=== PATIENT | male | born 1965 | race Caucasian/White ===

== ENCOUNTER 2017-06-29 08:55 | Outpatient (CLI) | payer BC | END 2017-06-29 08:56 | disposition home or self-care (01) | LOC: BICRAD 08:55 | PROVIDERS: ATTEND Urology | DX: C64.1 Malignant neoplasm of right kidney, except renal pelvis (principal); C64.2 Malignant neoplasm of left kidney, except renal pelvis | CPT/HCPCS: 71046 ==

== ENCOUNTER 2018-10-03 08:07 | Outpatient (CLI) | payer OTHER ==
[2018-10-03 08:41] LABS: #Eosinphils 0.2 thou/uL (0.0-0.7); #Monocytes 0.6 thou/uL (0.11-0.59); #Neutrophils 3.1 thou/uL (1.40-6.50); %Basophils 0.8 % (0.0-1.0); %Eosinophils 3.4 % (0.0-10.0); %Lymphocytes 33.7 % (21.0-51.0); %Monocytes 10.6 % (0.0-10.0); %Neutrophils 51.4 % (42.0-75.0); Mean Corpuscular HGB CONC 34.3 g/dL (32.0-36.0); Mean Corpuscular Hemoglobin 31.3 pg (27.0-31.0); Mean Corpuscular Volume 91.1 fL (78.0-98.0); Mean Platelet Volume 6.7 fL (7.4-10.4); Platelet Count 148 thou/uL (130-400); RBC Distribution Width 11.7 % (11.5-14.5); Red Blood Cell (RBC) Count 5.11 mill/uL (4.70-6.10); White Blood Cell (WBC) Count 5.9 thou/uL (4.8-10.8)
[2018-10-03 08:54] LABS: Bilirubin Negative (Negative); Blood, Urine Negative (Negative); Clarity CLEAR (Clear); Glucose, Urine (Dipstick) Negative (Negative); Leukocyte Negative (Negative); Nitrite Negative (Negative); Protein, Urine (Dipstick) Negative (Neg-Trace); Specific Gravity, Urine 1.005 (1.002-1.036); Urobilinogen 0.2 mg/dL (0.2-1.0)
[2018-10-03 09:07] LABS: ALT (SGPT) 36 U/L (8-55); AST (SGOT) 23 U/L (5-34); Albumin 4.5 g/dL (3.5-5.0); Alkaline Phosphatase 65 U/L (40-150); Anion Gap 13 mmol/L (10-20); BUN (Urea Nitrogen) 21 mg/dL (8.4-25.7); BUN/Creatinine Ratio 13.64; Bilirubin, Total 0.7 mg/dL (0.2-1.2); Calc. Creatinine Clearance 0 mL/min (70-130); Calcium 9.2 mg/dL (7.8-10.44); Carbon Dioxide 24 mmol/L (22-29); Cardiac Risk 3.5 (Less than 4.5); Chloride 107 mmol/L (98-107); Cholesterol 160 mg/dl (< 200 Desired); Estimated GFR-MDRD 47; Globulin 2.3 g/dL (2.4-3.5); Glucose 104 mg/dL (70-105); HDL Cholesterol 46 mg/dL (>60 Neg Risk); LDL Cholesterol, Calculated 93 mg/dL; Potassium 4.6 mmol/L (3.5-5.1); Protein, Total 6.8 g/dL (6.0-8.3); Sodium 139 mmol/L (136-145); Triglycerides 103 mg/dL (Less than 150); Uric Acid 6.9 mg/dL (3.5-7.2)
[2018-10-03 09:24] LABS: Creatinine, Urine 38.33 mg/dL (63-166); Protein, Urine Random Quant Less than 10 mg/dL (1-14)
--- NOTE | 2018-10-03 09:43 | MRI ---
MRI OF THE ABDOMEN WITHOUT CONTRAST: Date: 10/03/18 COMPARISON: None. HISTORY: Malignant neoplasm of the right kidney, status post nephrectomy. Malignant neoplasm of the left kidne y, status post partial nephrectomy. COMPARISON: 12/08/15. TECHNIQUE: Multiplanar, multisequence MR images were obtained of the abdomen without contrast. FINDINGS: The right kidney has been removed. The right adrenal gland is not seen and may have also been removed . There is scarring along the mid portion of the left kidney, likely from prior partial nephrectomy. No suspicious renal mass is appreciated, although evaluation is limited without contrast. The liver, gallbladder, left adrenal gland, spleen, and pancreas are unremarkable. No abdominal adenopathy is seen. No marrow signal abnormality is present. IMPRESSION: Postsurgical changes of right nephrectomy and left partial nephrectomy without evidence of recurrent or metastatic disease. POS: [facility]
--- NOTE | 2018-10-03 10:47 | RAD ---
PA AND LATERAL VIEWS OF CHEST: Date: 10/03/18 HISTORY: Neoplasm of left and right kidneys, chronic renal disease. Follow-up kidney cancer. COMPARISON: 02/22/18. FINDINGS: The heart size is normal. There is continued elevation of the right hemidiaphragm. No focal areas of consolidation, pneumothorax, mass, or pleural effusions are seen. There are degenerative changes in t he spine. IMPRESSION: Stable exam. No acute process. POS: OFF
== END 2018-10-03 08:08 | disposition home or self-care (01) ==
LOC: MRI 08:07
PROVIDERS: ATTEND Urology
DX: Z12.5 Encounter for screening for malignant neoplasm of prostate (principal); C64.1 Malignant neoplasm of right kidney, except renal pelvis; C64.2 Malignant neoplasm of left kidney, except renal pelvis; N18.9 Chronic kidney disease, unspecified; Z98.890 Other specified postprocedural states
CPT/HCPCS: 36415; 71046; 74181; 80053; 80061; 80069; 81003; 82570; 84156; 84550; 85025; G0103

== ENCOUNTER 2018-11-15 10:23 | Outpatient (CLI) | payer OTHER ==
--- NOTE | 2018-11-15 12:00 | RAD ---
LEFT WRIST: Three views 11/15/18 HISTORY: Wrist pain. Carpals are normally aligned. There are moderate degenerative changes of the first carpometacarpal kelle int with joint narrowing and hypertrophic spurring. No fracture. IMPRESSION: Moderate DJD at the first carpometacarpal. POS: [facility]
--- NOTE | 2018-11-15 12:14 | RAD ---
RIGHT WRIST RADIOGRAPHS 3 VIEWS: Date: 11/15/18 PROVIDED CLINICAL HISTORY: Right wrist pain. FINDINGS: There is no evidence for fracture or other acute osseous abnormality. Prominent first CMC degenerativ e changes are seen. Alignment appears anatomic. Joint spaces appear otherwise preserved. Soft tissues appear radiographically unremarkable. IMPRESSION: First CMC degenerative change. POS: OFF
== END 2018-11-15 10:24 | disposition home or self-care (01) ==
LOC: BICRAD 10:23
PROVIDERS: ATTEND Specialist
DX: M25.531 Pain in right wrist (principal); M25.532 Pain in left wrist; M18.0 Bilateral primary osteoarthritis of first carpometacarpal joints

== ENCOUNTER 2019-05-06 09:48 | Outpatient (CLI) | payer OTHER ==
--- NOTE | 2019-05-06 10:28 | ULT ---
ULTRASOUND RETROPERITONEUM COMPLETE: (RENAL) DATE: 05/06/2019 HISTORY: 54-year-old male with malignant neoplasm of right kidney except renal pelvis. COMPARISON: 02/22/2018 FINDINGS: Right kidney: Surgically absent. Left kidney: 12.5 x 5.5 x 5.5 cm. Broad midline midpole indentation. No moderate sized or large solid or cystic left renal lesion.. No left hydronephrosis. Urinary bladder volume 160 mL. Bladder wall thickness at upper limits of normal, nonspecific. No major interval change. IMPRESSION: 1) status post right nephrectomy. 2) left renal midpole scar. 3) compensatory hypertrophy of left kidney. 4) no other left renal findings.
--- NOTE | 2019-05-06 10:43 | RAD ---
PA AND LATERAL VIEWS CHEST: Date: 05/06/19 HISTORY: Right kidney cancer. FINDINGS: Comparison made with exam of 10/03/18. The heart size is normal. There is continued elevation of the right hemidiaphragm. No focal areas of consolidation, pneumothorax, mass, or pleural effusions seen. There are degenerative changes in the s pine. IMPRESSION: Stable exam. No acute process. POS: OFF
== END 2019-05-06 09:49 | disposition home or self-care (01) ==
LOC: BICULT 09:48
PROVIDERS: ATTEND Urology
DX: C64.1 Malignant neoplasm of right kidney, except renal pelvis (principal); C64.2 Malignant neoplasm of left kidney, except renal pelvis; N28.81 Hypertrophy of kidney; N28.89 Other specified disorders of kidney and ureter; Z90.5 Acquired absence of kidney
CPT/HCPCS: 71046; 76770

== ENCOUNTER 2019-11-07 07:03 | Outpatient (CLI) | payer BC ==
--- NOTE | 2019-11-07 08:17 | ULT ---
Exam: Bilateral renal ultrasound HISTORY: Right kidney cancer COMPARISON: 05/06/2019 FINDINGS: Right kidney: Surgically absent Left kidney: Normal cortical echotexture. Stable scar in the midpole the left kidney. No hydronephros is. There is compensatory left kidney hypertrophy. Left kidney measurements 5.3 x 12.5 x 6.0 cm. Urinary bladder: Normal mucosa. IMPRESSION: 1. Status post right nephrectomy 2. Stable scar in the mid pole left kidney 3. No hydronephrosis. Compensatory hypertrophy of the left kidney.
--- NOTE | 2019-11-07 08:37 | RAD ---
PA AND LATERAL VIEWS CHEST: Date: 11/07/2019 INDICATION: Malignant neoplasm of right and left kidney. COMPARISON: 05/06/2019. FINDINGS: Lung pittman are clear. Heart and mediastinum appear normal. Vasculature normal. Osseous structures un remarkable. No interval change. IMPRESSION: Unremarkable chest. POS: [facility]
== END 2019-11-07 07:04 | disposition home or self-care (01) ==
LOC: BICULT 07:03
PROVIDERS: ATTEND Urology
DX: C64.1 Malignant neoplasm of right kidney, except renal pelvis (principal); C64.2 Malignant neoplasm of left kidney, except renal pelvis; N28.89 Other specified disorders of kidney and ureter; Z90.5 Acquired absence of kidney; N18.9 Chronic kidney disease, unspecified; N52.9 Male erectile dysfunction, unspecified; Z12.5 Encounter for screening for malignant neoplasm of prostate
CPT/HCPCS: 36415; 71046; 76770; 80053; 81001; G0103

== ENCOUNTER 2020-04-30 10:42 | Outpatient (CLI) | payer BC ==
--- NOTE | 2020-04-30 11:23 | RAD ---
EXAM: Chest PA and lateral: HISTORY: Left kidney malignant neoplasm. COMPARISON: 11/07/2019 FINDINGS: Heart: Normal cardiac silhouette Aorta: Unremarkable Pulmonary vessels: Normal Costophrenic angles: Costophrenic angles are clear. Lungs: No consolidation or masses. Pneumothorax: No pneumothorax Osseous structures: No osseous abnormalities IMPRESSION: No acute cardiopulmonary process.
== END 2020-04-30 10:43 | disposition home or self-care (01) ==
LOC: BICRAD 10:42
PROVIDERS: ATTEND Urology
DX: C64.2 Malignant neoplasm of left kidney, except renal pelvis (principal); C64.1 Malignant neoplasm of right kidney, except renal pelvis
CPT/HCPCS: 36415; 71046; 80053; 81001

== ENCOUNTER 2020-05-20 08:33 | Outpatient (CLI) | payer BC ==
--- NOTE | 2020-05-20 10:19 | ULT ---
BILATERAL RENAL ULTRASOUND: Date: 05/20/2020 INDICATION: Malignant neoplasm given as reason for exam. FINDINGS/IMPRESSION: The patient is status post right nephrectomy. The left kidney measures 12.0 cm length. There is a cortical scar in the left kidney which has been n oted previously on MRI. Dense shadowing from this scar obscures detail in the mid left kidney. There is no hydronephrosis. No other evidence of mass or cystic lesion. The bladder is imaged. Initial images show mild distention of bladder. The bladder appears unremarkab le. Post-void imaging shows adequate emptying of the bladder. Post-void volume recorded at 21 mL. POS: [facility]
== END 2020-05-20 08:34 | disposition home or self-care (01) ==
LOC: BICULT 08:33
PROVIDERS: ATTEND Urology
DX: C64.1 Malignant neoplasm of right kidney, except renal pelvis (principal); C64.2 Malignant neoplasm of left kidney, except renal pelvis; N32.89 Other specified disorders of bladder; Z90.5 Acquired absence of kidney
CPT/HCPCS: 76770

== ENCOUNTER 2020-10-26 09:02 | Outpatient (CLI) | payer BC | END 2020-10-26 09:03 | disposition home or self-care (01) | LOC: BICMRI 09:02 | PROVIDERS: ATTEND Urology | DX: C64.1 Malignant neoplasm of right kidney, except renal pelvis (principal); C64.2 Malignant neoplasm of left kidney, except renal pelvis; N18.9 Chronic kidney disease, unspecified | CPT/HCPCS: 71046; 74181 ==

== ENCOUNTER 2021-10-28 08:33 | Outpatient (CLI) | payer BC | END 2021-10-28 08:34 | disposition home or self-care (01) | LOC: ULT 08:33 | PROVIDERS: ATTEND Urology | DX: C64.2 Malignant neoplasm of left kidney, except renal pelvis (principal); C64.1 Malignant neoplasm of right kidney, except renal pelvis | CPT/HCPCS: 71046; 76770 ==

== ENCOUNTER 2022-10-20 09:14 | Outpatient (CLI) | payer BC | END 2022-10-20 09:15 | disposition home or self-care (01) | LOC: TBSIIMAG 09:14 | PROVIDERS: ATTEND Urology | DX: C64.1 Malignant neoplasm of right kidney, except renal pelvis (principal); C64.2 Malignant neoplasm of left kidney, except renal pelvis; N18.9 Chronic kidney disease, unspecified | CPT/HCPCS: 71046; 74181 ==